=== PATIENT | female | born 1990 | race Caucasian/White ===

== ENCOUNTER → 2017-12-06 | Outpatient (REF) | payer OTHER ==
[2017-12-06 11:27] LABS: ALBUMIN/GLOBULIN RATIO 1.14 (1.00-1.93); ALKALINE PHOSPHATASE 51 U/L (45-117); ALT/SGPT 28 U/L (12-78); AST/SGOT 42 U/L (7-37); BILIRUBIN,DIRECT 0.1 MG/DL (0.0-0.2); BILIRUBIN,TOTAL 0.4 MG/DL (0.2-1.0); TOTAL PROTEIN 7.5 GM/DL (6.4-8.2)
== END ==
LOC: M SFHCLERA 08:49
DX: B35.1 Tinea unguium (principal)
CPT/HCPCS: 80076

== ENCOUNTER → 2018-01-07 | Outpatient (REF) | payer OTHER | LOC: M SFHCLERA 16:19 | DX: Z12.4 Encounter for screening for malignant neoplasm of cervix (principal) ==